=== PATIENT | female | born 1960 | race African-American/Black ===

== ENCOUNTER 2023-01-22 15:04 | Outpatient (CLI) | payer OTHER, SELFPAY ==
--- NOTE | ~2023-01-22 | MR_ITS ---
EXAMINATION: MR shoulder RT wo con DATE: 01/22/2023 16:00 INDICATION: Right shoulder pain TECHNIQUE: Magnetic resonance imaging (MRI) of the right shoulder was performed without intravenous c ontrast. Sequences included axial PD-weighted FS FSE, coronal oblique PD-weighted FS FSE, coronal obl ique T2-weighted FS FSE, sagittal PD-weighted FS FSE, and sagittal T1-weighted SE. COMPARISON: None. FINDINGS: Coracoacromial arch: The acromion undersurface is curved in morphology (type II). The coracoacromial ligament is normal. M ild acromioclavicular osteoarthritis. Rotator cuff: Moderate supraspinatus and mild infraspinatus tendinopathy without discrete tear. Teres minor tendon is normal. Mild subscapularis tendinopathy with small linear intrasubstance split tear extending appr oximately 5 mm medially from the central aspect of the lesser tuberosity footplate between otherwise intact appearing tendon fibers. Normal rotator cuff muscle bulk and signal. Biceps tendon, glenoid labrum and glenohumeral cartilage: Long head of the biceps tendon is normal. Diffuse mild increased signal at the 10:30-11:00 position o f the posterosuperior glenoid labrum consistent with likely labral degeneration without a clearly def ined linear labral tear. Small region of subtle signal heterogeneity immediately adjacent cartilage a long the posterior superior rim of the glenoid suggesting partial thickness fissuring without degener ative subchondral changes. Is mild partial-thickness chondral ulceration with smooth chondral surface at the inferior glenoid. Fluid: Physiologic amount of fluid in the glenohumeral joint and biceps tendon sheath. No loose osteochondr al bodies. No abnormal fluid signal in the subacromial/subdeltoid bursa to suggest bursitis. Bones: Normal marrow signal with no edema, fracture or abnormal marrow replacing process. Mild cystic change at the greater tuberosity. IMPRESSION: 1. Moderate supraspinatus and mild infraspinatus and subscapularis tendinopathy with very small intra substance split tear at the distal subscapularis tendon. 2. Mild acromion clavicular and glenohumeral osteoarthritis with small region of degeneration at the posterosuperior glenoid labrum. Reviewed, dictated and finalized at location B. IMPRESSION: 1. Moderate supraspinatus and mild infraspinatus and subscapularis tendinopathy with very small intrasubstance split tear at the distal subscapularis tendon. 2. Mild acromion clavicular and glenohumeral osteoarthritis with small region o f degeneration at the posterosuperior glenoid labrum.
== END 2023-01-22 15:05 | disposition home or self-care (01) ==
PROVIDERS: PCP Orthopaedic Surgery; Visit Provider Orthopaedic Surgery
DX: M25.511 Pain in right shoulder (principal); G89.29 Other chronic pain; M75.81 Other shoulder lesions, right shoulder; M19.011 Primary osteoarthritis, right shoulder
CPT/HCPCS: 73221